=== PATIENT | male | born 1990 | race Caucasian/White ===

== ENCOUNTER 2018-03-13 05:11 | Emergency (ER) | payer SELFPAY, OTHER | END 2018-03-13 08:48 | disposition home or self-care (01) | LOC: FTE 05:11 | DX: M54.2 Cervicalgia (principal); M79.675 Pain in left toe(s); F17.210 Nicotine dependence, cigarettes, uncomplicated | CPT/HCPCS: 72040; 72100; 73630-LT; 99284-25 ==